=== PATIENT | male | born 1990 | race Caucasian/White ===

== ENCOUNTER 2016-11-14 19:48 | Emergency (ER) | payer OTHER ==
[~2016-11-14] VITALS: Ht 167.6 cm; Wt 95.3 kg
[2016-11-14] MEDS ORDERED: TETRACAINE 0.5% OPHTH SOLN 4ML OS ONE (20:45)
[2016-11-14] MEDS ORDERED: FLUORESCEIN OPHTH 1 MG STRIP OS ONE (20:45)
[2016-11-14] MEDS ORDERED: IBUP80TA PO (21:13)
[2016-11-14] MEDS ORDERED: GENT3OPD OS (21:13)
[2016-11-14] MEDS ORDERED: NAPROXEN 250 MG TAB PO ONE (21:15)
[2016-11-14] MEDS ORDERED: GENTAMICIN 0.3% OPHTH SOL 5 ML BTL OS ONE (21:15)
[2016-11-14 21:24] VITALS: BP 145/89
== END 2016-11-14 21:25 | disposition home or self-care (01) ==
LOC: M ED 20:46
DX: S05.02XA Injury of conjunctiva and corneal abrasion without foreign body, left eye, initial encounter (principal); W50.0XXA Accidental hit or strike by another person, initial encounter; Y92.89 Other specified places as the place of occurrence of the external cause; Y93.83 Activity, rough housing and horseplay; Y99.9 Unspecified external cause status; F17.200 Nicotine dependence, unspecified, uncomplicated; K21.9 Gastro-esophageal reflux disease without esophagitis; Z91.040 Latex allergy status; Z87.442 Personal history of urinary calculi

== ENCOUNTER 2016-12-22 10:12 | Emergency (ER) | payer OTHER ==
[~2016-12-22] VITALS: Ht 170.2 cm; Wt 96.4 kg
[~2016-12-22 10:12] MED LIST: GENT3OPD OS; IBUP80TA PO
[2016-12-22] MEDS ORDERED: NS 1,000 ML IV ONE (11:00)
[2016-12-22] MEDS ORDERED: ONDANSETRON 4MG/2ML VIAL (J2405) IV ONE (11:00)
[2016-12-22 11:31] LABS: BASO # 0.1 K/mm3 (0.0-0.2); BASO % 0.5 % (0.0-1.0); EOS # 0.2 K/mm3 (0.0-0.50); EOS % 1.4 % (0.0-3.0); LARGE UNSTAINED CELL # 0.2 K/mm3 (0.0-0.4); LARGE UNSTAINED CELL % 1.9 % (0.0-4.0); LYMPH # 2.1 K/mm3 (1.5-6.5); LYMPH % 16.5 % (24.0-44.0); MEAN CORPUSCULAR HEMOGLOBIN 29.8 pg (27.0-33.0); MEAN CORPUSCULAR HGB CONC 33.3 g/dl (32.0-36.5); MEAN CORPUSCULAR VOLUME 89.4 fl (80.0-96.0); MONO # 0.9 K/mm3 (0.0-0.8); MONO % 6.9 % (0.0-5.0); NEUTROPHILS # 9.3 K/mm3 (1.8-7.7); NEUTROPHILS % 72.7 % (36.0-66.0); PLATELET COUNT, AUTOMATED 223 k/mm3 (150-450); RED CELL DISTRIBUTION WIDTH 12.6 % (11.5-14.5); WHITE BLOOD COUNT 12.7 K/mm3 (4.0-10.0)
[2016-12-22 11:46] LABS: METHADONE URINE NEGATIVE (NEGATIVE)
[2016-12-22 11:54] LABS: ALBUMIN/GLOBULIN RATIO 0.93 (1.00-1.93); ALKALINE PHOSPHATASE 87 U/L (45-117); ALT/SGPT 22 U/L (12-78); AMYLASE 34 U/L (25-115); ANION GAP 6 MEQ/L (8-16); AST/SGOT 13 U/L (15-37); BILIRUBIN,DIRECT < 0.1 MG/DL (0.0-0.2); BILIRUBIN,TOTAL 0.3 MG/DL (0.2-1.0); BLOOD UREA NITROGEN 11 MG/DL (7-18); CALCIUM LEVEL 9.3 MG/DL (8.5-10.1); CARBON DIOXIDE LEVEL 29 MEQ/L (21-32); CHLORIDE LEVEL 108 MEQ/L (98-107); CREATININE FOR GFR 1.08 MG/DL (0.70-1.30); GLOMERULAR FILTRATION RATE > 60.0 (>60); GLUCOSE, FASTING 95 MG/DL (70-105); POTASSIUM SERUM 3.8 MEQ/L (3.5-5.1); SODIUM LEVEL 143 MEQ/L (136-145); TOTAL PROTEIN 8.3 GM/DL (6.4-8.2)
--- NOTE | 2016-12-22 12:09 | REP ---
ABDOMEN, FLAT AND UPRIGHT PA CHEST, THREE VIEWS: HISTORY: Abdominal pain. A small amount of air is present in small and large intestine. Several air fluid levels are present. A minimally dilated loop of intestine is present. There is no pneumoperitoneum. Multiple gallstones are present. The lungs are clear. IMPRESSION: 1. Nonspecific bowel gas pattern. 2. Cholelithiasis. Signed by Benito Carter MD 12/22/2016 12:10 P
[2016-12-22] MEDS ORDERED: CIPR-249 PO (12:18)
[2016-12-22] MEDS ORDERED: ZOFR4TAB3 PO (12:18)
[2016-12-22 12:25] VITALS: BP 141/95
== END 2016-12-22 12:31 | disposition home or self-care (01) ==
LOC: M ED 10:12
DX: N39.0 Urinary tract infection, site not specified (principal); R11.2 Nausea with vomiting, unspecified; Z87.442 Personal history of urinary calculi; F17.200 Nicotine dependence, unspecified, uncomplicated; Z91.040 Latex allergy status

== ENCOUNTER 2017-06-13 19:53 | Emergency (ER) | payer OTHER ==
[2017-06-13] MEDS: LIDOCAINE VISCOUS 2% SOLN 15ML UDC SSP (22:04)
[2017-06-13] MEDS: CLINDAMYCIN 150 MG CAP PO (22:04)
[2017-06-13] MEDS: PERCOCET 5MG/325MG TAB PO (22:05)
== END 2017-06-13 22:17 | disposition home or self-care (01) ==
LOC: M ED 19:53
DX: K04.7 Periapical abscess without sinus (principal); K02.9 Dental caries, unspecified; F17.210 Nicotine dependence, cigarettes, uncomplicated; Z88.5 Allergy status to narcotic agent; Z91.040 Latex allergy status; Z88.8 Allergy status to other drugs, medicaments and biological substances; Z87.442 Personal history of urinary calculi; Z98.890 Other specified postprocedural states
CPT/HCPCS: 99283

== ENCOUNTER 2017-07-14 11:59 | Emergency (ER) | payer OTHER ==
[2017-07-14] MEDS: NORCO, ANEXSIA 5/325MG TABLET (HYDROcodone/ACETAMINOPHEN) PO (13:15)
== END 2017-07-14 13:33 | disposition home or self-care (01) ==
LOC: M ED 11:59
DX: K04.7 Periapical abscess without sinus (principal); F17.200 Nicotine dependence, unspecified, uncomplicated
CPT/HCPCS: 99283

== ENCOUNTER 2017-07-27 13:40 | Emergency (ER) | payer OTHER ==
[2017-07-27] MEDS: KETOROLAC 60 MG/2 ML VIAL (J1885) IM (16:32)
[2017-07-27] MEDS: CYCLOBENZAPRINE 10 MG TAB PO (16:32)
== END 2017-07-27 17:59 | disposition home or self-care (01) ==
LOC: M ED 13:40
DX: S20.229A Contusion of unspecified back wall of thorax, initial encounter (principal); W00.9XXA Unspecified fall due to ice and snow, initial encounter; Y92.89 Other specified places as the place of occurrence of the external cause; Y93.01 Activity, walking, marching and hiking; F17.210 Nicotine dependence, cigarettes, uncomplicated; Z79.2 Long term (current) use of antibiotics; Z91.040 Latex allergy status; Z88.5 Allergy status to narcotic agent; Z88.8 Allergy status to other drugs, medicaments and biological substances; Z87.442 Personal history of urinary calculi; Z98.890 Other specified postprocedural states
CPT/HCPCS: J1885

== ENCOUNTER 2017-08-12 11:18 | Emergency (ER) | payer OTHER ==
[2017-08-12] MEDS: ONDANSETRON 4MG/2ML VIAL (J2405) IV (13:45)
[2017-08-12] MEDS: NS 1,000 ML IV (13:45)
[2017-08-12 14:43] LABS: BASO # 0.1 10^3/uL (0.0-0.2); BASO % 0.7 % (0.0-1.0); EOS # 0.2 10^3/uL (0.0-0.50); EOS % 1.5 % (0.0-3.0); HEMATOCRIT 49.6 % (42.0-52.0); HEMOGLOBIN 16.4 g/dl (14.0-18.0); IMMATURE GRANULOCYTE % 0.8 % (0-3.0); LYMPH # 2.3 10^3/uL (1.5-6.5); LYMPH % 18.9 % (24.0-44.0); MEAN CORPUSCULAR HEMOGLOBIN 28.9 pg (27.0-33.0); MEAN CORPUSCULAR HGB CONC 33.1 g/dl (32.0-36.5); MEAN CORPUSCULAR VOLUME 87.3 fl (80.0-96.0); MONO # 0.9 10^3/uL (0.0-0.8); MONO % 7.2 % (0.0-5.0); NEUTROPHILS # 8.6 10^3/uL (1.8-7.7); NEUTROPHILS % 70.9 % (36.0-66.0); PLATELET COUNT, AUTOMATED 253 10^3/uL (150-450); RED BLOOD COUNT 5.68 10^6/uL (4.30-6.10); RED CELL DISTRIBUTION WIDTH 13.2 % (11.5-14.5); WHITE BLOOD COUNT 12.1 10^3/uL (4.0-10.0)
[2017-08-12 15:11] LABS: ALBUMIN 4.4 GM/DL (3.2-5.2); ALBUMIN/GLOBULIN RATIO 1.13 (1.00-1.93); ALKALINE PHOSPHATASE 91 U/L (45-117); ALT/SGPT 27 U/L (12-78); ANION GAP 5 MEQ/L (8-16); AST/SGOT 17 U/L (7-37); BILIRUBIN,DIRECT 0.1 MG/DL (0.0-0.2); BILIRUBIN,TOTAL 0.4 MG/DL (0.2-1.0); BLOOD UREA NITROGEN 13 MG/DL (7-18); CALCIUM LEVEL 9.1 MG/DL (8.5-10.1); CARBON DIOXIDE LEVEL 28 MEQ/L (21-32); CHLORIDE LEVEL 108 MEQ/L (98-107); CREATININE FOR GFR 0.83 MG/DL (0.70-1.30); GLOMERULAR FILTRATION RATE > 60.0 (>60); GLUCOSE, FASTING 82 MG/DL (70-100); LIPASE 86 U/L (73-393); POTASSIUM SERUM 4.6 MEQ/L (3.5-5.1); SODIUM LEVEL 141 MEQ/L (136-145); TOTAL PROTEIN 8.3 GM/DL (6.4-8.2)
[2017-08-12 15:14] LABS: INFLUENZA A AMPLIFICATION NEGATIVE (NEGATIVE); INFLUENZA B AMPLIFICATION NEGATIVE (NEGATIVE)
[2017-08-12 15:56] LABS: KETONE, URINE AUTO RFX NEGATIVE (NEGATIVE); LEUKOCYTE ESTERASE UR AUTO RFX NEGATIVE (NEGATIVE); MUCUS, URINE RFX SMALL (NEGATIVE); NITRITE, URINE AUTO RFX NEGATIVE (NEGATIVE); RBC, URINE AUTO RFX 1 /HPF (0-3); SPECIFIC GRAVITY UR AUTO RFX 1.014 (1.002-1.035); SQUAM EPITHELIAL CELL UR AURFX 0 /HPF (0-6); WBC, URINE AUTO RFX 3 /HPF (0-3)
[2017-08-12] MEDS ORDERED: ONDANSETRON 4MG/2ML VIAL (J2405) IV (23:15)
== END 2017-08-12 17:29 | disposition home or self-care (01) ==
LOC: M ED 11:18
DX: K52.9 Noninfective gastroenteritis and colitis, unspecified (principal); F17.210 Nicotine dependence, cigarettes, uncomplicated; Z88.5 Allergy status to narcotic agent; Z91.040 Latex allergy status
CPT/HCPCS: J2405

== ENCOUNTER 2017-12-05 14:53 | Emergency (ER) | payer OTHER | END 2017-12-05 16:24 | disposition home or self-care (01) | LOC: M ED 14:53 | DX: K04.7 Periapical abscess without sinus (principal); K02.9 Dental caries, unspecified; R68.84 Jaw pain; F17.210 Nicotine dependence, cigarettes, uncomplicated; Z88.5 Allergy status to narcotic agent; Z91.040 Latex allergy status | CPT/HCPCS: 99282 ==

== ENCOUNTER 2018-01-29 17:17 | Emergency (ER) | payer OTHER ==
[2018-01-29] MEDS: KETOROLAC 30 MG/ML VIAL (J1885) IM (18:27)
[2018-01-29] MEDS: PERCOCET 5MG/325MG TAB PO (19:20)
[2018-01-29] MEDS: ONDANSETRON 4 MG ORAL DISINTEGRATING TAB (Q0162 PER 1MG) PO (19:20)
== END 2018-01-29 19:45 | disposition home or self-care (01) ==
LOC: M ED 17:17
DX: S60.511A Abrasion of right hand, initial encounter (principal); W01.0XXA Fall on same level from slipping, tripping and stumbling without subsequent striking against object, initial encounter; Y92.038 Other place in apartment as the place of occurrence of the external cause; M25.531 Pain in right wrist; Z88.5 Allergy status to narcotic agent; Z91.040 Latex allergy status; F17.210 Nicotine dependence, cigarettes, uncomplicated
CPT/HCPCS: Q0162

== ENCOUNTER 2018-02-21 16:02 | Emergency (ER) | payer OTHER ==
[2018-02-21] MEDS: PERCOCET 5MG/325MG TAB PO (17:41)
[2018-02-21] MEDS: CLINDAMYCIN 150 MG CAP PO (17:41)
== END 2018-02-21 18:05 | disposition home or self-care (01) ==
LOC: M ED 16:02
DX: K04.7 Periapical abscess without sinus (principal); K02.9 Dental caries, unspecified; F17.200 Nicotine dependence, unspecified, uncomplicated
CPT/HCPCS: 99283

== ENCOUNTER 2018-07-06 01:46 | Emergency (ER) | payer OTHER ==
[~2018-07-06] VITALS: Ht 167.6 cm; Wt 86.4 kg
[~2018-07-06 01:46] MED LIST changes: +CIPR-249 PO; +CLEO300C2 PO; +CLIN150C14 PO; +CYCL10TA PO; +IBUP-1022; +KETO10TAB PO; +LIDO1SOL7 MT; +NORCOTAB PO; +OXYCOD/APAP; +PENI500T PO; +PERC5TAB12 PO; +ZOFR4TAB14 PO; +ZOFR4TAB14 SL
[2018-07-06] MEDS ORDERED: ACE65ERTAB PO (01:56)
[2018-07-06] MEDS ORDERED: diphenhydrAMINE INJ 50MG/ML VIAL (J1200) IV ONE (02:30)
[2018-07-06] MEDS ORDERED: METOCLOPRAMIDE INJ 10MG/2ML VIAL (J2765) IV ONE (02:30)
[2018-07-06] MEDS ORDERED: NS 1,000 ML IV ONE (02:30)
[2018-07-06] MEDS ORDERED: KETOROLAC 30 MG/ML VIAL (J1885) IV ONE (02:30)
[2018-07-06 03:53] VITALS: BP 130/69
== END 2018-07-06 03:57 | disposition home or self-care (01) ==
LOC: M ED 01:46
DX: G43.909 Migraine, unspecified, not intractable, without status migrainosus (principal)
CPT/HCPCS: 36415; 96361; 96374; 96375; 99284; J1200; J1885; J2765

== ENCOUNTER 2022-01-11 21:36 | Emergency (ER) | payer OTHER, SELFPAY ==
[~2022-01-11] VITALS: Ht 167.6 cm; Wt 86.4 kg
[~2022-01-11 21:36] MED LIST changes: +ACE65ERTAB PO; -CLIN150C14 PO; +CLIN150C17 PO; +CYCL-707 PO; -CYCL10TA PO; +GENT0.3S36 OS; -GENT3OPD OS; +HYDR-3715 PO; -LIDO1SOL7 MT; +LIDO2SOL17 MT; -NORCOTAB PO
[2022-01-11 23:59] LABS: BASO # 0.1 10^3/uL (0.0-0.2); BASO % 0.8 % (0.0-1.0); EOS # 0.3 10^3/uL (0.0-0.5); EOS % 2.5 % (0.0-3.0); HEMOGLOBIN 13.8 g/dl (13.5-17.5); LYMPH # 2.6 10^3/uL (1.5-5.0); LYMPH % 18.7 % (24.0-44.0); MEAN CORPUSCULAR HGB CONC 31.4 g/dl (32.0-36.5); MEAN CORPUSCULAR VOLUME 89.4 fl (80.0-96.0); MONO # 1.5 10^3/uL (0.0-0.8); MONO % 11.2 % (2.0-8.0); NEUTROPHILS % 66.1 % (36.0-66.0); PLATELET COUNT, AUTOMATED 295 10^3/uL (150-450); RED BLOOD COUNT 4.92 10^6/uL (4.30-6.10); WHITE BLOOD COUNT 13.6 10^3/uL (4.0-10.0)
[2022-01-12 00:21] LABS: ERYTHROCYTE SEDIMENTATION RATE 31 mm/hr (0-15)
[2022-01-12] MEDS ORDERED: CEPH500C PO (00:53)
[2022-01-12] MEDS ORDERED: CEPHALEXIN 500 MG CAP PO ONE (00:55)
[2022-01-12 01:04] VITALS: BP 136/90
== END 2022-01-12 01:04 | disposition home or self-care (01) ==
LOC: M ED 21:36
DX: L03.115 Cellulitis of right lower limb (principal); Z88.5 Allergy status to narcotic agent; Z91.040 Latex allergy status

== ENCOUNTER 2022-02-09 00:10 | Emergency (ER) | payer OTHER ==
[~2022-02-09] VITALS: Ht 167.6 cm; Wt 98.7 kg
[~2022-02-09 00:10] MED LIST changes: +CEPH500C PO
[2022-02-09 00:12] VITALS: BP 141/85
== END 2022-02-09 05:30 | disposition left against medical advice (07) ==
LOC: M ED 00:10
DX: Z53.29 Procedure and treatment not carried out because of patient's decision for other reasons (principal)

== ENCOUNTER 2022-03-03 20:39 | Emergency (ER) | payer OTHER ==
[~2022-03-03] VITALS: Ht 167.6 cm; Wt 86.4 kg
[2022-03-03] MEDS ORDERED: KETOROLAC 30 MG/ML 1ML VIAL IM ONE (22:00)
[2022-03-03 22:21] VITALS: BP 124/72
== END 2022-03-03 23:32 | disposition home or self-care (01) ==
LOC: M ED 20:39
DX: R07.89 Other chest pain (principal); K21.9 Gastro-esophageal reflux disease without esophagitis; Z88.5 Allergy status to narcotic agent; Z91.040 Latex allergy status; F17.200 Nicotine dependence, unspecified, uncomplicated
CPT/HCPCS: 93005; 96372; 99284; J1885

== ENCOUNTER 2022-09-17 13:31 | Emergency (ER) | payer OTHER ==
[~2022-09-17] VITALS: Ht 167.6 cm; Wt 102.0 kg
[~2022-09-17 13:31] MED LIST changes: +LIDO15SO MT; -LIDO2SOL17 MT
[2022-09-17] MEDS ORDERED: IBUP-1022 PO (15:21)
[2022-09-17] MEDS ORDERED: AMOX875T2 PO (15:21)
[2022-09-17 15:28] VITALS: BP 168/92
== END 2022-09-17 15:31 | disposition home or self-care (01) ==
LOC: M ED 13:31
DX: K02.9 Dental caries, unspecified (principal); Z88.5 Allergy status to narcotic agent; Z91.040 Latex allergy status

== ENCOUNTER 2024-05-11 22:45 | Emergency (ER) | payer OTHER ==
[~2024-05-11] VITALS: Ht 167.6 cm; Wt 104.5 kg
[~2024-05-11 22:45] MED LIST changes: +AMOX875T2 PO; +IBUP-1022 PO; -LIDO15SO MT; +LIDO15SO8 MT
[2024-05-11 22:47] VITALS: BP 135/82; TEMP 97.5; O2SAT 92
[2024-05-12] MEDS ORDERED: CEPH500C PO (06:31)
== END 2024-05-12 00:20 | disposition left against medical advice (07) ==
LOC: M ED 05-12
DX: Z53.21 Procedure and treatment not carried out due to patient leaving prior to being seen by health care provider (principal)

== ENCOUNTER 2024-05-12 01:46 | Emergency (ER) | payer OTHER ==
[~2024-05-12] VITALS: Ht 167.6 cm; Wt 102.8 kg
[2024-05-12] MEDS ORDERED: CEPH500C PO (06:31)
[2024-05-12] MEDS: CEPHALEXIN 500 MG CAP PO ONE (06:45)
[2024-05-12 06:46] VITALS: BP 127/88; TEMP 98; O2SAT 95
== END 2024-05-12 06:47 | disposition home or self-care (01) ==
LOC: M ED 01:46
DX: N49.2 Inflammatory disorders of scrotum (principal); Z88.5 Allergy status to narcotic agent; Z91.040 Latex allergy status; Z79.2 Long term (current) use of antibiotics; Z79.1 Long term (current) use of non-steroidal anti-inflammatories (NSAID)